=== PATIENT | male | born 1990 | race Caucasian/White ===

== ENCOUNTER 2016-04-03 00:27 | Emergency (ER) | payer OTHER ==
[2016-04-03 00:38] VITALS: RESP 16
--- NOTE | 2016-04-03 00:55 | CPEKG ---
Heart Rate: 69 RR Interval: 870 P-R Interval: 132 QRSD Interval: 88 QT Interval: 404 QTC Interval: 433 P [place]: 66 QRS [place]: 104 T Wave [place]: 46 EKG Severity - OTHERWISE NORMAL ECG - EKG Impression: SINUS RHYTHM EKG Impression: BORDERLINE RIGHT AXIS DEVIATION Electronically Signed By: Luisa Smith 03-Apr-2016 07:05:45
--- NOTE | 2016-04-03 01:17 | EDPHY ---
H & P Stated Complaint: c/o ongoing cp x 2 months, manas felt pop in chest then feeling tingling Time Seen by Provider: 04/03/16 00:48 HPI/ROS: HPI The patient presents with an episode of chest pain which occurred just prior to arrival, he was in the car driving and the pain came on suddenly in his left chest. He felt a pop and developed some tingling throughout his chest. This was associated with palpitations. By the time he got to the emergency room his symptoms had subsided now they are completely gone. He denies any shortness of breath, leg swelling, nausea, vomiting, diaphoresis. He has had intermittent chest pain for the last 8 months, 2 months ago he saw primary care doctor and was diagnosed with costochondritis. He had an EKG done and he was told that he may have some right-sided heart strain. He had PFTs performed recently and was told his lung function was compromise so he was started on prednisone, 5 day course. Today is day 3 of his prednisone.. REVIEW OF SYSTEMS Constitutional: No fever, no chills. Eyes: No discharge. ENT: No sore throat. Cardiovascular: See HPI Respiratory: No cough, no shortness of breath. Gastrointestinal: No abdominal pain, no vomiting. Genitourinary: No hematuria. Musculoskeletal: No back pain. Skin: No rashes. Neurological: No headache. PMHx: Costochondritis Soc Hx: Nonsmoker PHYSICAL General Appearance: Alert, no distress Eyes: Pupils equal and round no pallor or injection ENT, Mouth: Mucous membranes moist Respiratory: There are no retractions, lungs are clear to auscultation Cardiovascular: Regular rate and rhythm no chest wall tenderness Gastrointestinal: Abdomen is soft and non-tender, no masses, bowel sounds normal Neurological: A&O, moves all extremities Skin: Warm and dry, no rashes Musculoskeletal: Neck is supple non tender Extremities: symmetrical, full range of motion Psychiatric: Patient is oriented X 3, there is no agitation Source: Patient Exam Limitations: No limitations - Medical/Surgical History Hx Asthma: Yes Hx Chronic Respiratory Disease: No Hx Diabetes: No Hx Cardiac Disease: No Hx Renal Disease: No Hx Cirrhosis: No Hx Alcoholism: No Hx HIV/AIDS: No Hx Splenectomy or Spleen Trauma: No Other PMH: asthma - Social History Smoking Status: Never smoked Constitutional: Initial Vital Signs Temperature (C) 36.4 C 04/03/16 00:34 Heart Rate 71 04/03/16 00:34 Respiratory Rate 16 04/03/16 00:34 Blood Pressure 137/82 H 04/03/16 00:34 O2 Sat (%) 96 04/03/16 00:34 O2 Delivery Mode Room Air Allergies/Adverse Reactions: ibuprofen Allergy (Verified 04/03/16 00:39) Home Medications: Medication Instructions Recorded Albuterol 04/03/16 predniSONE 04/03/16 Medical Decision Making - Diagnostics EKG Interpretation: EKG: Complete interpretation has been separately recorded in the [facility] archive. Summary impression: Mild right axis deviation Imaging: Chest x-ray two view shows no effusion, no cardiomegaly, no infiltrate, interpreted by me, radiology interpretation is pending. Differential Diagnosis: This is a 25-year-old man who has a recent diagnosis of costochondritis, who is on day 3 of a 5 day course of prednisone for reactive airways disease based on his PFTs from what I can tell by history, who presents with an episode of chest pain associated with palpitations lasting for about 1 hour, completely resolved now. On exam, he has normal vital signs, he is well-appearing, he does have some mild left-sided chest wall tenderness, otherwise his lungs sound clear. EKG was performed which does show a mild right axis deviation. It seems that this was present on his prior EKG per his report. Chest x-ray is unremarkable. Differential diagnosis includes costochondritis, prednisone side-effect, less likely rib fracture, ACS, pulmonary embolism. In the emergency room, he had no return of his pain. He will be discharged home with follow up with his primary care doctor. We have discussed the side effects of prednisone and that I feel his pain is most likely related to his costochondritis. Departure - Departure Disposition: Home, Routine, Self-Care Clinical Impression: Chest pain Qualifiers: Chest pain type: unspecified Qualifier Code: (R07.9) Chest pain, unspecified Condition: Good Instructions: Chest Pain (ED), Costochondritis (ED) Additional Instructions: Please return to the emergency room if your worse in any way. Referrals: HERMILA MONTANO [Doctor of Osteopathy] - As per Instructions
[2016-04-03 01:27] VITALS: BP 121/68; PULSE 70; TEMP 98.1; O2SAT 97
--- NOTE | 2016-04-03 08:52 | DX ---
Chest, PA and lateral. HISTORY: Chest pain FINDINGS: Heart size is within normal limits. Pulmonary vascularity appears normal. The lungs are navarro ar. No evidence for pleural effusion or pneumothorax. No significant osseous abnormality. IMPRESSION: Normal chest x-ray.
== END 2016-04-03 01:26 | disposition home or self-care (01) ==
DX: R07.9 Chest pain, unspecified (principal); J45.909 Unspecified asthma, uncomplicated

== ENCOUNTER 2018-02-13 22:29 | Emergency (ER) | payer OTHER ==
[2018-02-13] MEDS ORDERED: ONDANSETRON 4 MG/2 ML VIAL IVP ONE (22:55)
[2018-02-13] MEDS ORDERED: NS 1,000 ML IV ONE ×2 (22:55→23:31)
[2018-02-13] MEDS ORDERED: IOPAMIDOL (ISOVUE-300) 100 ML BTL ONE (22:57)
--- NOTE | 2018-02-13 23:00 | EDPHY ---
H & P Stated Complaint: n/v/d, bloody stools, dehydrated Time Seen by Provider: 02/13/18 22:39 HPI/ROS: Chief Complaint: Abdominal pain, nausea, vomiting, diarrhea, blood in stool HPI: 27 year old male states that about 830 tonight he began developing nausea vomited multiple times. He then developed diarrhea. Initially was watery and then states he had blood in his stool. Is accompanied by abdominal pain. He says that all began after he ate some calm are about 30 min prior. Does not have a history of similar episodes in the past. Is complaining of right lower abdominal pain. No fevers or chills. Also complaining some back pain. No lightheadedness or fainting. No palpitations. ROS: 10 systems were reviewed and were negative except those elements noted in the HPI. PMH: Denies Social History: No smoking, no alcohol, no recreational drug use Family History: non-contributory Physical Exam: Gen: Awake, Alert, No Distress HEENT: Nose: no rhinorrhea Eyes: PERRLA, EOMI Mouth: Moist mucosa Neck: Supple, no JVD Chest: nontender, lungs clear to auscultation Heart: S1, S2 normal, no murmur Abd: Soft, a moderate tenderness right lower quadrant with voluntary guarding Back: no CVA tenderness, no midline tenderness Ext: no edema, non-tender Skin: no rash Neuro: CN II-XII intact, Sensation grossly intact, Strength 5/5 in bilateral upper and lower extremities - Personal History Current Tetanus Diphtheria and Acellular Pertussis (TDAP): Yes - Medical/Surgical History Hx Asthma: Yes Hx Chronic Respiratory Disease: No Hx Diabetes: No Hx Cardiac Disease: No Hx Renal Disease: No Hx Cirrhosis: No Hx Alcoholism: No Hx HIV/AIDS: No Hx Splenectomy or Spleen Trauma: No Other PMH: asthma, Gout - Social History Smoking Status: Never smoked Constitutional: Initial Vital Signs Temperature (C) 36.8 C 02/13/18 22:32 Heart Rate 105 H 02/13/18 22:32 Respiratory Rate 18 02/13/18 22:32 Blood Pressure 142/81 H 02/13/18 22:32 O2 Sat (%) 97 02/13/18 22:32 O2 Delivery Mode Room Air Allergies/Adverse Reactions: ibuprofen Allergy (Verified 02/13/18 22:32) meloxicam Allergy (Verified 02/13/18 22:34) Home Medications: Medication Instructions Recorded Albuterol 04/03/16 predniSONE 04/03/16 Ondansetron Odt [Zofran Odt 4 mg 4 mg PO Q4 PRN #10 tab 02/14/18 (*)] Medical Decision Making - Diagnostics Imaging Results: Imaging Impressions Abdomen CT 02/13/18 22:55 Impression: 1. Mildly thickened fluid-filled loops of small bowel and large bowel diffusely suggestive of enteritis and possible colitis. 2. No CT evidence of appendicitis, abscess or bowel obstruction. 3. Borderline splenomegaly. 4. Incidental hypodense area in the liver probably representing small hemangioma. Findings discussed with Maciej Lance MD at 0:14 hour, 02/14/2018. ED Course/Re-evaluation: 27-year-old male with symptoms consistent with gastroenteritis. His abdominal pain with shows a normal appendix and no other acute process. Patient has been hydrated here. No other vomiting. Will discharge with Zofran. Instructions for Pedialyte hydration, follow up with primary care physician. - Data Points Laboratory Results: Laboratory Results 02/13/18 22:00 02/13/18 22:00 02/13/18 02/13/18 22:00 22:00 WBC 10.93 10^3/uL H 10^3/uL (3.80-9.50) RBC 5.94 10^6/uL 10^6/uL (4.40-6.38) Hgb 17.1 g/dL g/dL (13.7-17.5) Hct 49.8 % % (40.0-51.0) MCV 83.8 fL fL (81.5-99.8) MCH 28.8 pg pg (27.9-34.1) MCHC 34.3 g/dL g/dL (32.4-36.7) RDW 12.5 % % (11.5-15.2) Plt Count 247 10^3/uL 10^3/uL (150-400) MPV 9.4 fL fL (8.7-11.7) Neut % (Auto) 91.3 % H % (39.3-74.2) Lymph % (Auto) 2.8 % L % (15.0-45.0) Sharp % (Auto) 4.6 % % (4.5-13.0) Eos % (Auto) 0.6 % % (0.6-7.6) Baso % (Auto) 0.3 % % (0.3-1.7) Nucleat RBC Rel Count 0.0 % % (0.0-0.2) Absolute Neuts (auto) 9.98 10^3/uL H 10^3/uL (1.70-6.50) Absolute Lymphs (auto) 0.31 10^3/uL L 10^3/uL (1.00-3.00) Absolute Monos (auto) 0.50 10^3/uL 10^3/uL (0.30-0.80) Absolute Eos (auto) 0.07 10^3/uL 10^3/uL (0.03-0.40) Absolute Basos (auto) 0.03 10^3/uL 10^3/uL (0.02-0.10) Absolute Nucleated RBC 0.00 10^3/uL 10^3/uL (0-0.01) Immature Gran % 0.4 % % (0.0-1.1) Immature Gran # 0.04 10^3/uL 10^3/uL (0.00-0.10) RBC/WBC/PLT Morphology TNP Platelet Estimate TNP Sodium 141 mEq/L mEq/L (135-145) Potassium 3.6 mEq/L mEq/L (3.5-5.2) Chloride 105 mEq/L mEq/L (97-110) Carbon Dioxide 20 mEq/l L mEq/l (22-31) Anion Gap 16 mEq/L H mEq/L (6-14) BUN 15 mg/dL mg/dL (7-23) Creatinine 1.2 mg/dL mg/dL (0.7-1.3) Estimated GFR > 60 Glucose 120 mg/dL H mg/dL (70-100) Calcium 10.4 mg/dL mg/dL (8.5-10.4) Total Bilirubin 1.8 mg/dL H mg/dL (0.1-1.4) AST 25 IU/L IU/L (17-59) ALT 35 IU/L IU/L (21-72) Alkaline Phosphatase 56 IU/L IU/L (38-126) Total Protein 8.2 g/dL g/dL (6.3-8.2) Albumin 5.3 g/dL H g/dL (3.5-5.0) Medications Given: Discontinued Medications Sodium Chloride (Ns) 1,000 mls @ 0 mls/hr IV ONCE ONE; Wide Open PRN Reason: Protocol Stop: 02/13/18 22:56 Last Admin: 02/13/18 22:59 Dose: 1,000 mls Sodium Chloride (Ns) 1,000 mls @ 0 mls/hr IV ONCE ONE; Wide Open PRN Reason: Protocol Stop: 02/13/18 23:32 Last Admin: 02/13/18 23:33 Dose: 1,000 mls Ondansetron HCl (Zofran) 4 mg IVP EDNOW ONE Stop: 02/13/18 22:56 Last Admin: 02/13/18 23:00 Dose: 4 mg Departure - Departure Disposition: Home, Routine, Self-Care Clinical Impression: Acute gastroenteritis Condition: Good Instructions: Gastroenteritis (ED), Ondansetron (By mouth), Dehydration (ED) Additional Instructions: Make sure to drink plenty of fluids. Pedialyte is the best fluid for rehydration. You may take Zofran as needed for nausea vomiting. Follow up with primary care physician in 2-3 days if symptoms are not improving. Return to the emergency department for uncontrolled abdominal pain, fainting, uncontrolled fevers or chills, or any other concerns. Referrals: MALLORY GABRIEL [Primary Care Provider] - As per Instructions Prescriptions: Ondansetron Odt [Zofran Odt 4 mg (*)] 4 mg PO Q4 PRN #10 tab PRN Reason: nausea
[2018-02-13 23:04] LABS: PLATELET COUNT 247 10^3/uL (150-400)
[2018-02-13 23:32] VITALS: BP 117/81
[2018-02-14] MEDS ORDERED: ONDANSETRON 4MG PREPACK#2 BTL TAKEHOME ONE (00:21)
== END 2018-02-14 00:51 | disposition home or self-care (01) ==
DX: K52.9 Noninfective gastroenteritis and colitis, unspecified (principal); E86.0 Dehydration
CPT/HCPCS: 96374; J2405; Q9967